=== PATIENT | male | born 1990 | race African-American/Black ===

== ENCOUNTER 2017-11-11 09:54 | Emergency (ER) | payer OTHER ==
[~2017-11-11] VITALS: Ht 177.8 cm; Wt 135.2 kg
[~2017-11-11 09:54] MED LIST: BACTRIM DS TAB1 EACH PO; BENICAR20 MG PO; COZAAR 25 MG TA25 M2 PO; ELIQUIS2.5 MG PO; FLEXERIL PO; GABAPENTIN 100100 MG PO; HUMALOG PE100 UNIT/M SC; LANTUS100 UNIT/M SUBQ; LISINOPRIL40 MG PO; LOVASTATIN 20 M20 MG PO; METFORMIN HCL500 MG PO; NAPROSYN500 MG PO; NORCO 5-325 TA1 EACH PO; PREDNISONE 20 M20 MG PO; PROMETHAZINE-C120 ML PO; TOPROL XL25 MG PO; TOUJEO SOL300 UNIT/1 SQ; TRAMADOL 50 MG50 MG PO
[2017-11-11 09:58] VITALS: BP 179/120
[2017-11-11 10:17] LABS: URINE BILIRUBIN NEGATIVE (Negative); URINE BLOOD NEGATIVE (Negative); URINE CLARITY CLEAR; URINE COLOR YELLOW; URINE GLUCOSE-RANDOM* 3+ (Negative); URINE KETONES NEGATIVE (Negative); URINE LEUKOCYTES-REFLEX NEGATIVE (Negative); URINE NITRITE-REFLEX NEGATIVE (Negative); URINE PROTEIN (DIPSTICK) NEGATIVE (Negative); URINE UROBILINOGEN 0.2 E.U./dl (0.2-1.0)
== END 2017-11-11 10:49 | disposition home or self-care (01) ==
LOC: ER 09:54
PROVIDERS: Physician Assistant
DX: Z11.3 Encounter for screening for infections with a predominantly sexual mode of transmission (principal); Z20.2 Contact with and (suspected) exposure to infections with a predominantly sexual mode of transmission; I10 Essential (primary) hypertension; J45.909 Unspecified asthma, uncomplicated; E11.9 Type 2 diabetes mellitus without complications; I48.91 Unspecified atrial fibrillation; E78.00 Pure hypercholesterolemia, unspecified; Z88.0 Allergy status to penicillin; Z79.4 Long term (current) use of insulin

== ENCOUNTER 2018-04-02 08:54 | Emergency (ER) | payer OTHER ==
[~2018-04-02] VITALS: Ht 175.3 cm; Wt 130.6 kg
[2018-04-02 09:03] VITALS: BP 193/117
[2018-04-02 09:07] LABS: URINE BILIRUBIN NEGATIVE (Negative); URINE BLOOD NEGATIVE (Negative); URINE CLARITY CLEAR; URINE COLOR YELLOW; URINE GLUCOSE-RANDOM* 2+ (Negative); URINE KETONES NEGATIVE (Negative); URINE NITRITE-REFLEX NEGATIVE (Negative); URINE PROTEIN (DIPSTICK) NEGATIVE (Negative); URINE UROBILINOGEN 0.2 E.U./dl (0.2-1.0)
[2018-04-02 09:09] LABS: URINE LEUKOCYTES-REFLEX TRACE (Negative)
[2018-04-02] MEDS ORDERED: GYNE-LOTRIMIN-745 GM TOP (09:26)
== END 2018-04-02 09:39 | disposition home or self-care (01) ==
LOC: ER 08:54
PROVIDERS: Student in an Organized Health Care Education/Training Program
DX: B37.42 Candidal balanitis (principal); E11.65 Type 2 diabetes mellitus with hyperglycemia; I10 Essential (primary) hypertension; J45.909 Unspecified asthma, uncomplicated; I48.91 Unspecified atrial fibrillation; E78.00 Pure hypercholesterolemia, unspecified; Z79.4 Long term (current) use of insulin; Z88.0 Allergy status to penicillin

== ENCOUNTER 2018-07-15 09:48 | Emergency (ER) | payer OTHER ==
[~2018-07-15] VITALS: Ht 175.3 cm; Wt 127.0 kg
[~2018-07-15 09:48] MED LIST changes: +GYNE-LOTRIMIN-745 GM TOP
[2018-07-15] MEDS ORDERED: DOXYCYCLINE 10100 MG PO (11:20)
[2018-07-15 11:30] VITALS: BP 144/97
== END 2018-07-15 11:30 | disposition home or self-care (01) ==
LOC: ER 09:48
DX: L29.8 Other pruritus (principal); I10 Essential (primary) hypertension; J45.909 Unspecified asthma, uncomplicated; E10.9 Type 1 diabetes mellitus without complications; I48.91 Unspecified atrial fibrillation; E78.00 Pure hypercholesterolemia, unspecified; Z88.0 Allergy status to penicillin

== ENCOUNTER 2019-02-24 22:33 | Emergency (ER) | payer OTHER ==
[~2019-02-24] VITALS: Ht 175.3 cm; Wt 136.1 kg
[~2019-02-24 22:33] MED LIST changes: +DOXYCYCLINE 10100 MG PO
[2019-02-24 22:35] VITALS: BP 162/98
[2019-02-24] MEDS ORDERED: NAPROSYN500 MG PO (22:55)
[2019-02-24] MEDS ORDERED: MEDROLDOSEPACK PO (22:55)
== END 2019-02-24 23:21 | disposition home or self-care (01) ==
LOC: ER 22:33
DX: M25.511 Pain in right shoulder (principal); I10 Essential (primary) hypertension; J45.909 Unspecified asthma, uncomplicated; I48.91 Unspecified atrial fibrillation; E78.00 Pure hypercholesterolemia, unspecified; E11.9 Type 2 diabetes mellitus without complications; Z88.0 Allergy status to penicillin

== ENCOUNTER 2019-09-07 16:00 | Emergency (ER) | payer OTHER ==
[~2019-09-07] VITALS: Ht 175.3 cm; Wt 108.9 kg
[2019-09-07 16:00] VITALS: BP 151/106
[~2019-09-07 16:00] MED LIST changes: +MEDROLDOSEPACK PO
[2019-09-07] MEDS ORDERED: KEFLEX500 M1 PO (16:20)
== END 2019-09-07 19:20 | disposition home or self-care (01) ==
LOC: ER 16:00
DX: L03.311 Cellulitis of abdominal wall (principal); I10 Essential (primary) hypertension; I48.91 Unspecified atrial fibrillation; E11.9 Type 2 diabetes mellitus without complications; E78.00 Pure hypercholesterolemia, unspecified; J45.909 Unspecified asthma, uncomplicated; Z79.4 Long term (current) use of insulin; Z88.0 Allergy status to penicillin

== ENCOUNTER 2020-11-06 15:51 | Emergency (ER) | payer OTHER ==
[~2020-11-06] VITALS: Ht 175.3 cm; Wt 131.5 kg
[~2020-11-06 15:51] MED LIST changes: +KEFLEX500 M1 PO
[2020-11-06] MEDS ORDERED: CLEOCIN HCL150 MG PO (18:19)
[2020-11-06 18:27] VITALS: BP 170/105
--- NOTE | 2020-11-07 07:13 | EKG ---
[place] [address] [facility] [place] [address] ELECTROCARDIOGRAM REPORT Name: FABIANA LAURA BENJAMIN Room #: [facility]P [facility]#: [id number] Admission: 11/06/20 Attend Phys: Discharge: 11/06/20 Date of : [birth year] Report #: [id number] [facility] ED Test Date: 2020-11-06 Test Time: 17:59:24 Pat Name: ANA DUNLAP Department: Room: Gender: M English And Reading Instructor: BEREKET : 1990 Requested By: Tariq Sewell Order Number: [id number] MD: Jose Lawson Measurements Intervals [place] Rate: 75 P: 59 [place]: 159 QRS: 17 QRSD: 97 T: QT: 395 QTc: 442 Interpretive Statements Sinus rhythm Nonspecific T abnormalities, lateral leads Compared to ECG 03/01/2013 13:39:25 T-wave abnormality now present Electronically Signed On 11-07-2020 7:13:44 CDT by Jose Lawson [email or web address] <ELECTRONICALLY SIGNED> By: Jose Lawson MD, [facility] 11/07/20 0713 1759 1759 Jose Lawson MD, FACC /EPI
== END 2020-11-06 18:32 | disposition home or self-care (01) ==
LOC: ER 15:51
DX: M79.661 Pain in right lower leg (principal); M79.89 Other specified soft tissue disorders; I10 Essential (primary) hypertension; J45.909 Unspecified asthma, uncomplicated; I48.91 Unspecified atrial fibrillation; E11.9 Type 2 diabetes mellitus without complications; E78.5 Hyperlipidemia, unspecified; Z79.2 Long term (current) use of antibiotics; Z88.0 Allergy status to penicillin